=== PATIENT | female | born 1940 | race Caucasian/White ===

== ENCOUNTER 2017-04-10 07:37 | Day surgery (SDC) | payer MEDICARE, BC ==
[2017-04-10] MEDS ORDERED: Sodium Chloride 0.9% 10 ML Syringe FLUSH PRN (07:45)
[2017-04-10] MEDS ORDERED: Lactated Ringers 1,000 ML IV SCH (07:45)
[2017-04-10] MEDS ORDERED: Propofol 200 MG/20 ML SDV IV ONE (09:20)
[2017-04-10] MEDS ORDERED: Lidocaine 2% 100 MG/5 ML Syringe IVPUSH ONE (09:20)
[2017-04-10] MEDS ORDERED: Midazolam 1 MG/ML 2 ML SDV IV ONE (09:20)
--- NOTE | 2017-04-10 09:45 | PCM.OPNOTE ---
- General Post-Op/Procedure Note Date of Surgery/Procedure: 04/10/17 Operative Procedure(s): egd with bx Findings: hiatal hernia gastritis Pre Op Diagnosis: gerd Post-Op Diagnosis: hiatal hernia. gastritis Anesthesia Technique: DARLENE Primary Surgeon: Rony Daniels Anesthesia Provider: Angelo Wagner Pathology: stomach Complications: None Condition: Good Free Text/Narrative:: see dictation
--- NOTE | 2017-04-10 11:17 | OR ---
DATE OF OPERATION: 04/10/2017 SURGEON: Rony Daniels MD PROCEDURE PERFORMED: Esophagogastroduodenoscopy with cold forceps biopsy. PREOPERATIVE DIAGNOSIS: History of gastroesophageal reflux disease. POSTOPERATIVE DIAGNOSES: Gastritis and a hiatal hernia. INDICATIONS FOR PROCEDURE: This is a 77-year-old white female, who has a longstanding history of gastroesophageal reflux disease. She presents now for a routine screening. It requires multiple medications to control her symptoms and that is why she is on a schedule. DESCRIPTION OF OPERATION: After an excellent IV sedation was administered, the bite-block was inserted. The flexible endoscope was passed without difficulty down the patient's esophagus into the stomach. The stomach was insufflated and the scope was passed through the pylorus to the second portion of the duodenum and slowly withdrawn. The following findings were noted. Duodenum was unremarkable. Stomach demonstrated some diffuse gastritis and a hiatal hernia. Biopsies were taken at approximately 10 cm. The stomach is in the esophagus. The esophagus itself was essentially unremarkable. Multiple biopsies were taken. The remainder of the esophageal exam was unremarkable. Stomach was deflated. Scope was removed. The patient tolerated the procedure well, and was taken to recovery room in good condition. /[id number] /MODL
== END 2017-04-10 10:45 | disposition home or self-care (01) ==
LOC: FB.SDS 07:37
PROVIDERS: ATTEND Surgery
DX: K29.50 Unspecified chronic gastritis without bleeding (principal); K21.0 Gastro-esophageal reflux disease with esophagitis; K44.9 Diaphragmatic hernia without obstruction or gangrene; I10 Essential (primary) hypertension; E78.2 Mixed hyperlipidemia; E03.9 Hypothyroidism, unspecified; J45.909 Unspecified asthma, uncomplicated; Z88.8 Allergy status to other drugs, medicaments and biological substances; Z91.09 Other allergy status, other than to drugs and biological substances; Z79.2 Long term (current) use of antibiotics; Z79.899 Other long term (current) drug therapy
CPT/HCPCS: 00731-QZ; 88305; 88313; 88342; J2250; J2704; J7120

== ENCOUNTER 2022-04-10 19:51 | Emergency (ER) | payer MEDICARE, BC | END 2022-04-10 21:20 | disposition home or self-care (01) | LOC: FB.ED 19:51 | DX: S09.90XA Unspecified injury of head, initial encounter (principal); K21.9 Gastro-esophageal reflux disease without esophagitis; E78.00 Pure hypercholesterolemia, unspecified; I10 Essential (primary) hypertension; E03.9 Hypothyroidism, unspecified; Z91.048 Other nonmedicinal substance allergy status; Z88.8 Allergy status to other drugs, medicaments and biological substances; Z88.5 Allergy status to narcotic agent; Z79.899 Other long term (current) drug therapy; W18.09XA Striking against other object with subsequent fall, initial encounter | CPT/HCPCS: 70450; 99282; 99283 ==